=== PATIENT | female | born 1960 | race Caucasian/White ===

== ENCOUNTER 2023-02-03 09:02 | Day surgery (SDC) | payer BC, SELFPAY ==
[2023-02-03] VITALS (12 sets, daily range): BP systolic 108–160; BP diastolic 62–83; PULSE 52–69; RESP 15–20; TEMP 36.1–36.7; O2SAT 96–100; BMI 28.5
[2023-02-03] MEDS: LACTATED RINGERS 1000 ML 1,000 ML 100 ML IV (09:15)
[2023-02-03] MEDS: SODIUM CHLORIDE 0.9 % (FLUSH) 10 ML SYRINGE IVF (09:50)
--- NOTE | 2023-02-03 10:46 | W.ANESCHARGE ---
Anesthesia Charges Start Date/Time Anesthesia Start Date: 02/03/23 Anesthesia Start Time: 11:47 Stop Date/Time Anesthesia Stop Date: 02/03/23 Anesthesia Stop Time: 12:49
[2023-02-03] MEDS: CEFAZOLIN 2 GM in 0.9 % SODIUM CHLORIDE Mini-bag 100 ML IVPB (12:05)
[2023-02-03] MEDS: ROPIVACAINE 0.5% 30 ML 150 MG INJECTION (12:35)
--- NOTE | 2023-02-03 12:46 | W.ANESCHARGE ---
Anesthesia Charges Start Date/Time Anesthesia Start Date: 02/03/23 Anesthesia Start Time: 11:47 Stop Date/Time Anesthesia Stop Date: 02/03/23 Anesthesia Stop Time: 12:49
--- NOTE | 2023-02-03 13:22 | SUR.PHASEI ---
patient met discharge criteria per anesthesia
--- NOTE | 2023-02-04 13:19 | P.ORPRC_ITS ---
Procedure Note Date of procedure: 02/03/23 Procedure: PREOPERATIVE DIAGNOSIS: 1. Left knee lateral meniscus tear POSTOPERATIVE DIAGNOSIS: 1. Left knee lateral meniscus tear PROCEDURE: 1. Left knee arthroscopic partial lateral meniscectomy SURGEON: Darren Oseguera M.D. LAYOUT MECHANIC: Fausto BENAVIDES. Of note, an human resources benefits assistant was critical for this case to aid in patient positioning, knee manipulation, instrument exchange, and closure. ANESTHESIA: Spinal EBL: 2ml TOURNIQUET: 30 min at 300 torr COMPLICATIONS: None evident INDICATIONS: The patient is a pleasant 62-year-old female who has experienced left knee pain particularly with any twisting or turning. Physical exam was concerning for lateral meniscus tear, this was confirmed on MRI, along with a parameniscal cyst. Additionally, attempted nonoperative management has been tried, and failed. Thus, surgery was recommended. FINDINGS: Complex tear of the posterior horn to midbody even approaching the anterior horn lateral meniscus. Parameniscal cyst fluid was expressed into the knee, but the cyst not directly visualized. Relatively healthy articular cartilage in the lateral compartment. ACL and PCL were intact robust. Posterior root lateral meniscus was intact. Medial meniscus was intact and hea lthy. 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 Grade 3 chondromalacia patella median ridge. No loose bodies evident. DESCRIPTION OF PROCEDURE: After a thorough discussion of risks, benefits, and alternatives, the patient was brought to the operating room and placed upon the operating table. Induction of anesthesia was undertaken as previously noted. 1 g IV Ancef was administered within 1 hr of incision preoperatively. Appropriate time-out was performed identifying proper patient, site, and procedure. The left lower extremity was prepped and draped in the appropriate sterile fashion using ChloraPrep. The limb was exsanguinated and tourniquet inflated. Anterolateral and anteromedial portals were established with an 11 blade, and a diagnostic arthroscopy was performed. This identified the findings as noted above. Following the diagnostic arthroscopy, a partial lateral menisectomy was performed with the combination of basket forceps, a motorized shaver, and [place] cautery to help seal fibers to minimize the potential for parameniscal cyst persistence/worsening. Following this, the meniscus was re-probed and found to be stable. Approximately 25 % of the overall meniscus required resection. At this stage, the shaver was reinserted into the suprapatellar pouch and all remaining meniscal debris was evacuated. Instruments were removed, excess fluid was drained, and closure performed with 4-0 Monocryl with Steri-Strips. Dressings were applied, the tourniquet deflated, and the patient was awoken from anesthesia and transferred to the PACU in stable condition. PLAN: 1. Weightbear as tolerated operative extremity. Crutch / walker ambulation assistance PRN. Straight leg raise to be initiated starting tomorrow by the patient. 2. Ice, acetominophen and/or ibuprofen, and Walker for pain as needed. 3. Knee range of motion and quad sets/straight leg raise regularly 4. Follow up with PA visit in 7-10 days. for a wound check. Initiate physical therapy at that time
== END 2023-02-03 14:24 | disposition home or self-care (01) ==
PROVIDERS: PCP Internal Medicine; Visit Provider Orthopaedic Surgery Sports Medicine
PROC: (CPT 29870; principal; 2023-02-03 11:15)
DX: S83.272A Complex tear of lateral meniscus, current injury, left knee, initial encounter (principal)
CPT/HCPCS: 29881; 01400; J0690; J1100; J2250; J2405; J2704; J2795; J3010; J7120